=== PATIENT | male | born 1995 | race Hispanic/Latino ===

== ENCOUNTER 2017-12-16 19:52 | Emergency (ER) | payer BC ==
[~2017-12-16] VITALS: Ht 177.8 cm; Wt 77.1 kg
[2017-12-16] MEDS ORDERED: DOXYCYCLINE HY100 MG PO (21:57)
== END 2017-12-16 22:09 | disposition home or self-care (01) ==
LOC: ED 19:52
DX: N45.1 Epididymitis (principal)
CPT/HCPCS: 81001; 99283